=== PATIENT | female | born 1985 | race Caucasian/White ===

== ENCOUNTER 2016-04-05 10:41 | Emergency (ER) | payer OTHER ==
[2016-04-05] MEDS ORDERED: hydrOXYzine HCL 50 MG/ML VIAL IM ONE (10:56)
--- NOTE | 2016-04-05 11:02 | ED Physician Documentation ---
General Adult - HISTORIAN Historian: patient, spouse - HPI Stated Complaint: Medication Refill Chief Complaint: General Adult Additional Information: Wants refills for ambien, alprazolam, tegretol, and wants to be started on an antidepressant. Left residential yesterday and says she wasn't allowed t otake her meds with her. Has knots on low back for 3 months. Canb't sleep as she can't shut her thoughts off. No provider; says she just moved to this area. - ROS CONST: no problems NEURO/PSYCH: anxiety - PAST HX Past History: other (ADHD, Bipolar disorder, anxiety) Surgeries/Procedures: none Allergies/Adverse Reactions: Allergies Allergy/AdvReac Type Severity Reaction Status Date / Time atomoxetine HCl Allergy Mild Verified 04/21/12 03:13 [From Strattera] - SOCIAL HX Smoking History: cigarettes - FAMILY HX Family History: Yes (COPD, Melanoma) - VITAL SIGNS Vital Signs: Vital Signs Temp Pulse Resp BP Pulse Ox 97.1 F L 101 H 20 152/96 99 04/05/16 10:45 04/05/16 10:45 04/05/16 10:45 04/05/16 10:45 04/05/16 10:45 - REVIEWED ASSESSMENTS Nursing Assessment Reviewed: Yes Vitals Reviewed: Yes ED Results Lab/Radiology - Orders Orders: ED Orders Category Date Time Status hydrOXYzine HCL [Vistaril] Med 04/05/16 10:56 Discontinued 25 mg IM NOW ONE General Adult Physical Exam - PHYSICAL EXAM GENERAL APPEARANCE: mild distress (anxious) EENT: eye inspection normal, ENT inspection normal (many absent teeth), pharynx normal, JUN NECK: normal inspection, supple RESPIRATORY: no resp distress, breath sounds normal CVS: reg rate & rhythm, heart sounds normal, no murmur RECTAL: deferred BACK: normal inspection, other (1 cm freely moveable, slightly tender nodule over left PSI. No warmth or erythema. ) SKIN: warm/dry, normal color (multiple tattoos) EXTREMITIES: normal range of motion (gait and stance), no evidence of injury NEURO: CN's nml as tested, motor nml Discharge Clincal Impression: Anxiety Additional Instructions: Make an appointment to see someone at the [facility] next door, in the next five days. The phone number there is [phone]. Condition: Good Disposition: 01 HOME, SELF-CARE Decision to Admit: NO Decision Time: 11:05
[2016-04-05 11:14] VITALS: BP 130/68
== END 2016-04-05 11:12 | disposition home or self-care (01) ==
LOC: ED 10:41
DX: F41.9 Anxiety disorder, unspecified (principal); F17.210 Nicotine dependence, cigarettes, uncomplicated
CPT/HCPCS: 96372; 99282; 99283; J3410